=== PATIENT | female | born 1990 | race Caucasian/White ===

== ENCOUNTER 2023-02-19 13:44 | Emergency (ER) | payer BC, OTHER ==
--- OUTSIDE RECORDS SUMMARY | 2023-02-19 13:49 | XMS REPORT | Continuity of Care Document ---
:1990 Author Organization [facility] t Address [address] [place] [address] Care Team Providers Name Role Phone FENG OBONORUMA IMARIA Attending Clinician Unavailable Ralph Mendezonoruma Gregoriaariabe Attending Clinician Yossi Aguilar Attending Clinician EKHAESE OBONORUMA IMARIA Admitting Clinician Unavailable Ekhaese Obonoruma Imariabe Admitting Clinician Problems Condition Condition Condition Status Onset Resolution Last Treating Co mments Source Name Details Category Date Date Treatment Clinician Date E66.01 E66.01 Diagnosis Active 2021-102022-09-04 Me moria Active 0- 07:10:00 l 08/14/2022 00:00: Chava mendieta [address] MORBID MORBID Diagnosis Active 2021-102022-12-30 Me moria OBESITY, OBESITY, 0-20 09:59:00 l STATUS STATUS 00:00: Toney POST POST 00 GASTRIC GASTRIC BYPA BYPA Active 08/14/2022 [facility] UNK UNK Diagnosis Active 2022-06-10 Mem oria Active 05-09 17:21:00 l 05/09/2022 00:00: Chava Chandra 00 [place] EGD_ EGD_ Diagnosis Active 2022-06-11 Mem oria Active 05-09 06:30:00 l 05/09/2022 00:00: Chava Chandra 00 [place] DX E66.01 DX E66.01 Diagnosis Active 2022-05-16 Memoria MORBID MORBID 05-01 07:39:00 l (SEVERE) (SEVERE) 00:00: Chava mendieta OBESITY OBESITY 00 DUE TO DUE TO Active 05/01/2022 [facility] Gastroesop Gastroeso Problem Active 2022-11-28 Memoria hageal phageal 13:50:05 l reflux reflux [place] disease disease (disorder) (disorder) Active Problem 11/28/2022 [facility] Obesity Obesity Problem Active 2022-11-28 Me moria (disorder) (disorder) 13:50:05 l Active Toney Problem 11/28/2022 [facility] Pain in Pain in Problem Active 2022-11-28 Me moria upper limb upper limb 13:50:05 l (finding) (finding) Herm michele Active Problem 11/28/2022 [facility] Paresthesi Paresthes Problem Active 2022-11-28 Memoria a ia 13:50:05 l (finding) (finding) Herm michele Active Problem 11/28/2022 [facility] History of History Problem Active 2022-11-28 Memoria bariatric of 13:50:05 l surgical bariatric Lisseth nn procedure surgical (situation procedure ) (situation ) Active Problem 11/28/2022 [facility] MORBID MORBID Diagnosis Active 2022-12-30 Me moria (SEVERE) (SEVERE) 09:59:00 l OBESITY OBESITY Toney DUE TO DUE TO EXCESS CA EXCESS CA Active [facility] BARIATRIC Diagnosis Active 2022-12-30 Memoria SURGERY BARIATRIC 09:59:00 l STATUS SURGERY Toney STATUS Active [facility] Allergies, Adverse Reactions, Alerts Allergy Allergy Status Severity Reaction(s) Onset Inactive Treating Comm ents Source Name Type Date Date Clinician penicill penicill Active Sanjeev vo in in l [place] Social History Social Habit Start Date Stop Date Quantity Comments Source Social History 2022-06-04 2022-06-[address] [facility] danial 18:27:54 18:27:54 Smoking Status Start Date Stop Date Source Tobacco smoking status 2022-09-05 22:36:14 2022-09-05 22:36:14 [facility] Medications Ordered Filled Start Stop Current Ordering Indication Dosage Frequency Signature Comments Components Source Medication Medication Date Date Medication? Clinician (SIG) Name Name Sodium No 1,000 mL, Memori a Chloride 17 Rate: 75 l 0.9% IV 12:31: ml/hr, Toney 1,000 mL 00 Infuse over: 13.3 hr, Route: IV, Dosing Weight 142.227 kg, Total Volume: 1,000, Start date: 06/11/22 7:31:00 CDT, Duration: 30 day, Stop date: 07/11/22 7:30:00 CDT, BSA: 2.62 m2, 0 Home Yes collagen, Memoria Medication 8-10 Refill(s) l 18:23: 0 [place] 00 Vitamin D3 Yes 1,250 Memori a 50,000 intl 8-10 microgram l units oral 18:22: = 1 cap, Her yung capsule 00 PO, qWeek Vitamin B Yes PO, Daily Mem oria Complex 8-10 l oral tablet 18:17: Chava n 00 Vital Signs Vital Name Observation Time Observation Value Comments Source Heart Rate 2022-09-05 21:54:16 [facility] [place] Systolic (mm Hg) 2022-09-05 21:53:56 Delio rial [place]oney Diastolic (mm Hg) 2022-09-05 21:53:56 Mem orial [place] Temperature Oral (F) 2022-09-05 21:53:04 98.3 F [facility] [place] Weight 2022-09-04 12:35:00 [facility] [place] BMI Calculated 2022-09-04 12:35:00 Memori al [place] Height 2022-08-28 19:37:00 5 [ft_i] [facility] [place] Respitory Rate 2022-06-11 13:40:00 Memori al [place] Systolic (mm Hg) 2022-06-11 13:40:00 Delio rial [place] Diastolic (mm Hg) 2022-06-11 13:40:00 Mem orial [place] Respitory Rate 2022-06-11 13:25:00 Memori al [place] Systolic (mm Hg) 2022-06-11 13:25:00 Delio rial [place] Diastolic (mm Hg) 2022-06-11 13:25:00 Mem orial [place]oney Respitory Rate 2022-06-11 13:08:00 Memori al [place] Systolic (mm Hg) 2022-06-11 13:08:00 Delio rial [place] Diastolic (mm Hg) 2022-06-11 13:08:00 Mem orial [place] Height 2022-06-10 20:51:00 167.64 cm [facility] [place] Weight 2022-06-10 20:51:00 [facility] [place] BMI Calculated 2022-06-10 20:51:00 Memori al [place] Height 2022-06-04 18:24:00 167.64 cm [facility] [place] Weight 2022-06-04 18:24:00 [facility] [place] BMI Calculated 2022-06-04 18:24:00 Memori al [place] Procedures Procedure Date / Time Performing Source Performed Clinician Excision of ganglion [facility] noelle cyst<sup>1</sup> Cholecystectomy [facility] Toney Charnley operation on ankle Delio rial [place] EGD - [facility] Start End Encounter Admission Attending Care Care Encounter Source Date/Time Date/Time Type Type Clinicians Facility Department ID 2022-01-02 Outpatient [facility] [id number] Common 16:20:01 [facility] 2021-11-20 [facility] [id number] Common 14:34:51 [facility] 2022-11-24 2022-11-26 Outside MHIE MNA [id number] Memoria 14:28:56 05:59:59 Medical Neurology 00 l Gisell Ziegler 2022-11-24 2022-11-25 Outpatient MHMISCHER MHMISCHER [id number] 08:28:56 23:59:59 00 2022-09-04 2022-09-06 Inpatient [facility] [id number] Memoria 11:22:00 00:09:00 r Toney 02 l [facility] 2022-09-04 2022-09-05 Inpatient RENAN MENDEZ DARYL [id number] 05:22:00 18:09:00 [facility] 2022-09-05 Outpatient Ekhaese, MHSE MHSE [id number] 05:22:00 18:09:00 Obonoruma 02 Imariabe 2022-06-11 2022-06-11 Bedded nullFlavo [facility] [id number] Memoria 11:20:00 13:56:00 Outpatient r Toney [facility] 2022-06-11 2022-06-11 Outpatient EKHAESE, MHBL DARYL [id number] MHBL 06:20:00 08:56:00 OBONORUMA 2022-06-11 2022-06-11 Outpatient Ekhaese, MHPL MHPL [id number] 06:20:00 08:56:00 Obonoruma 01 aria 2022-06-11 2022-06-11 Outpatient Ekhaese, MHPL PL [id number] 06:20:00 08:56:00 Obonoruma 01 [facility] 2022-05-05 2022-06-04 Recurring nullFlavo [facility] [id number] Memoria 15:00:00 04:59:00 r Toney [facility] 2022-05-05 2022-06-03 Outpatient EKHAESE, MHSE DARYL [id number] MH 10:00:00 23:59:00 OBONORUMA [facility] 2022-05-05 2022-06-03 Outpatient Ekhaese, MHSE MHSE [id number] 10:00:00 23:59:00 Obonoruma 00 aria 2021-11-28 2021-11-29 Outpatient nullFlavo MNA [id number] Memoria 19:30:00 05:59:59 r Neurology 01 John Ramirezann 2021-11-28 2021-11-28 Outpatient LUI AguilarSCHER WILIANMISCHER [id number] 13:30:00 23:59:59 Yossi Mick Chase 2021-11-28 2021-11-28 Outpatient MHIE [place] [id number] Memoria 13:30:00 13:30:00 01 bam RamirezToney 2021-11-26 2021-11-26 Ambulatory nullFlavo MNA [id number] Memoria 22:15:00 22:15:00 [facility] 2021-11-26 Outpatient [facility] [id number] Memoria 16:15:00 16:15:00 00 l [place] 2021-11-26 2021-11-26 Outpatient ELIOT Aguilar [facility] [id number] 16:15:00 16:15:00 Yossi 00 Salvatore Results Test Description Test Time Test Comments Results Result Comments Source CHEMISTRY 2022-09-05 12:52:00 Test Item Value Reference Range Interpretation Comme nts Chloride Lvl (test code = Chloride Lvl) 108 95-109 [facility]SdwkptgFOTKXGETK3325-95-30 12:52:00 Test Item Value Reference Range Interpretation Comments CO2 (test code = CO2) 19 24-32 [facility] CenterQvqmjrxEPHMSYFWZ2371-94-88 12:52:00 Test Item Value Reference Range Interpretation Comments Calcium Lvl (test code = Calcium Lvl) 8.9 8.5-10.5 [facility] CenterIqjcdduLOPPCFLDR9075-89-15 12:52:00 Test Item Value Reference Range Interpretation Comments Total Protein (test code = Total 6.8 6.4-8.4 Protein) [facility] CenterQusarovVOXWLDTEI3574-66-39 12:52:00 Test Item Value Reference Range Interpretation Comments Albumin Lvl (test code = Albumin Lvl) 3.3 3.5-5.0 [facility] CenterRhkirzxHHSTZGRLS0572-99-68 12:52:00 Test Item Value Reference Range Interpretation Comments ALT (test code = ALT) 97 See_Comment [Auto mated message] The system which ge nerated this result transmit kylie reference range : <=65. The reference range was not used to interpr et this result as mahesh l/abnormal. [facility] CenterFydmvxzSVRECDVPA9445-96-18 12:52:00 Test Item Value Reference Range Interpretation Comments AST (test code = AST) 59 See_Comment [Auto mated message] The system which ge nerated this result transmit kylie reference range : <=37. The reference range was not used to interpr et this result as mahesh l/abnormal. [facility] CenterAlbenhmJPPGJEJYZ4467-28-80 12:52:00 Test Item Value Reference Range Interpretation Comments Alk Phos (test code = Alk Phos) 45 39-136 [facility] CenterUmavngyIQGNCSENP4593-43-99 12:52:00 Test Item Value Reference Range Interpretation Comments Bili Total (test code = Bili Total) 0.5 0.2-1.3 [facility] CenterGkvmtseJSVDGUEGY3332-40-47 12:52:00 Test Item Value Reference Range Interpretation Comments AGAP (test code = AGAP) 14.6 10.0-20.0 [facility] CenterDgmohkuVWGLAZJSI6369-74-99 12:52:00 Test Item Value Reference Range Interpretation Comments B/C Ratio (test code = B/C Ratio) 7 1 6-25 [facility] CenterZanyazpWLGCUNMJJ7887-96-64 12:52:00 Test Item Value Reference Range Interpretation Comments Globulin (test code = Globulin) 3.5 2.7-4.2 [facility] CenterLtxnlqcTPRKIBCXF5941-84-78 12:52:00 Test Item Value Reference Range Interpretation Comments A/G Ratio (test code = A/G Ratio) 0.9 1 0.7-1.6 [facility] CenterGfglwhxAPOTSFQCT6969-93-62 12:52:00 Test Item Value Reference Range Interpretation Comments eGFR (test code = eGFR) 84 [facility]DliljlkSTYLTXTDSZ9502-18-98 12:52:00 Test Item Value Reference Range Interpretation Comments WBC (test code = WBC) 13.6 3.7-10.4 [facility] HospitalOxkydbuIXQELXYLAK7492-20-19 12:52:00 Test Item Value Reference Range Interpretation Comments RBC (test code = RBC) 4.38 4.20-5.40 [facility] HospitalQjqzafdAIPAHYTOLB7559-11-11 12:52:00 Test Item Value Reference Range Interpretation Comments Hgb (test code = Hgb) 12.4 12.0-16.0 [facility] HospitalXqtnernZKQZSFXTST4475-46-01 12:52:00 Test Item Value Reference Range Interpretation Comments Hct (test code = Hct) 37.6 36.0-48.0 [facility] HospitalSursivuUAPPJHAABI1190-78-16 12:52:00 Test Item Value Reference Range Interpretation Comments MCV (test code = MCV) 86.0 80.0-98.0 [facility] HospitalXrbzthnVAAMOJPCIW3470-23-11 12:52:00 Test Item Value Reference Range Interpretation Comments MCH (test code = MCH) 28.4 pg 27.0-31.0 [facility] HospitalTurhdzpEQYVXSJXWS0808-20-87 12:52:00 Test Item Value Reference Range Interpretation Comments MCHC (test code = MCHC) 33.1 32.0-36.0 [facility] HospitalStulaftUUNXBFBVEU0430-26-31 12:52:00 Test Item Value Reference Range Interpretation Comments RDW (test code = RDW) 13.2 11.5-14.5 [facility] HospitalZwueewcXFNOKSWDVD9435-75-24 12:52:00 Test Item Value Reference Range Interpretation Comments Platelet (test code = Platelet) 250 133-450 [facility] HospitalSdxwvzgYEOTSOASSW3732-35-50 12:52:00 Test Item Value Reference Range Interpretation Comments MPV (test code = MPV) 8.0 7.4-10.4 [facility] HospitalUoxblpiKRHSCGKZHC1482-82-50 12:52:00 Test Item Value Reference Range Interpretation Comments Segs (test code = Segs) 83.7 45.0-75.0 [facility] HospitalXpeybpiQIBEOMTIFV6662-16-34 12:52:00 Test Item Value Reference Range Interpretation Comments Lymphocytes (test code = Lymphocytes) 9.2 20.0-40.0 [id number] 12:52:00 Test Item Value Reference Range Interpretation Comments Monocytes (test code = Monocytes) 6.9 2.0-12.0 [facility] HospitalCnsiwujPHJYZRLOHW3416-73-26 12:52:00 Test Item Value Reference Range Interpretation Comments Eosinophils (test code = 0.1 See_Comment [A utomated message] The Eosinophils) system which ge nerated this result tra nsmitted reference range : <=4.0. The reference r mega was not used to int erpret this result as normal/abnormal . [facility] HospitalXijzcxzQAVUWFBMTN9761-66-65 12:52:00 Test Item Value Reference Range Interpretation Comments Basophils (test code = 0.1 See_Comment [Aut omated message] The Basophils) system which ge nerated this result tra nsmitted reference range : <=1.0. The reference r mega was not used to int erpret this result as normal/abnormal . [place] [id number] 12:52:00 Test Item Value Reference Range Interpretation Comments Neutrophils # (test code = Neutrophils 11.4 1.5-8.1 #) [place] [id number] 12:52:00 Test Item Value Reference Range Interpretation Comments Lymphocytes # (test code = Lymphocytes 1.3 1.0-5.5 #) [facility] HospitalLmhrqwoXSNAYVBVRP0799-41-41 12:52:00 Test Item Value Reference Range Interpretation Comments Monocytes # (test code 0.9 See_Comment [Aut omated message] The = Monocytes #) system which generated this result tra nsmitted reference range : <=0.8. The reference r mega was not used to int erpret this result as normal/abnormal . [facility] CenterCdownzdYGEIRPLTL3218-51-05 12:52:00 Test Item Value Reference Range Interpretation Comments Glucose Lvl (test code = Glucose Lvl) 114 70-99 [facility] CenterZhkyibnVVBGNTJJY4867-05-65 12:52:00 Test Item Value Reference Range Interpretation Comments BUN (test code = BUN) 6 7-22 [facility] CenterUnhotiaLFITLJUGF2575-40-95 12:52:00 Test Item Value Reference Range Interpretation Comments Creatinine Lvl (test code = Creatinine 0.92 0.50-1.40 Lvl) [facility] CenterAnkobpbOUHIQXSMV7582-10-46 12:52:00 Test Item Value Reference Range Interpretation Comments Sodium Lvl (test code = Sodium Lvl) 137 135-145 [facility] CenterWoojuudYPYKLLYCW1549-87-87 12:52:00 Test Item Value Reference Range Interpretation Comments Potassium Lvl (test code = Potassium 4.6 3.5-5.1 Lvl) [facility]io[facility] HLGTUKS7809-90-32 12:45:00 Test Item Value Reference Range Interpretation Comments ABO/Rh (test code = ABO/Rh) [facility]G [facility] CEYUBQL0096-26-87 12:45:00 Test Item Value Reference Range Interpretation Comments Antibody Scrn (test Negative (09/04/22 code = Antibody Scrn) 6:45 AM) [facility] CenterGhcfokjMSTPTCOYE5255-00-07 11:55:00 Test Item Value Reference Range Interpretation Comments U Preg (test code = U Negative (09/04/22 5:55 Preg) AM) [facility] HospitalBxcugxcYKBHSIPFSH2319-36-59 20:19:00 Test Item Value Reference Range Interpretation Comments PT (test code = PT) 14.3 s 12.0-14.7 [facility] HospitalGgpzoxrGYINJCPBHO0645-17-66 20:19:00 Test Item Value Reference Range Interpretation Comments INR (test code = INR) 1.12 1 0.85-1.17 [facility] HospitalBbilixnAWXHMJJAIF4188-73-40 20:19:00 Test Item Value Reference Range Interpretation Comments PTT (test code = PTT) 32.4 s 22.9-35.8 [facility] HospitalFfruvxyYKFRFIJJRA1243-72-21 20:19:00 Test Item Value Reference Range Interpretation Comments Eosinophils # (test code 0.1 See_Comment [A utomated message] The = Eosinophils #) system whic h generated this result tra nsmitted reference range : <=0.5. The reference r mega was not used to int erpret this result as normal/abnormal . [facility] HospitalEvgsubtAHLKXNAPYW4160-79-08 20:19:00 Test Item Value Reference Range Interpretation Comments Basophils # (test code 0.1 See_Comment [Aut omated message] The = Basophils #) system which generated this result tra nsmitted reference range : <=0.2. The reference r mega was not used to int erpret this result as normal/abnormal . [facility] CampusKuexdxwKUNWTIQLPW7693-25-95 20:50:00 Test Item Value Reference Range Interpretation Comments Coronavirus (COVID-19) Not Detected (06/10/22 CAROLINE (test code = 3:50 PM) Coronavirus (COVID-19) CAROLINE) [facility] [id number] 20:50:00 Test Item Value Reference Range Interpretation Comments U Preg (test code = U Negative (06/10/22 3:50 Preg) PM) [facility]
[2023-02-19] MEDS ORDERED: Ringers Lactate 1,000 ML IV ONE (14:42)
[2023-02-19 14:43] LABS: Absolute Lymphocytes (CBC) 1.8 K/uL (0.7-4.9); Lymphocytes % 24.4 % (15.3-44.8); MPV 7.3 fL (7.6-11.3); RBC Red Blood Cell Count 4.77 M/uL (3.86-4.86)
--- NOTE | 2023-02-19 14:50 | RAD REPORT ---
EXAM DESCRIPTION: CT - Head Brain Wo Cont - 02/19/2023 2:21 pm CLINICAL HISTORY: near syncope, blurred vision COMPARISON: No comparisons TECHNIQUE: Noncontrast head CT images ad were obtained without IV contrast. Multiplanar reformats we re generated and reviewed. All CT scans are performed using dose optimization technique as appropriate and may include automated exposure control or mA/KV adjustment according to patient size. FINDINGS: No intracranial hemorrhage, mass, or edema. Midline structures are unremarkable. Normal ventricular caliber for age. Ware-white matter differentiation is preserved, without evidence of acute infarct. No abnormal extra- axial fluid collections. Mastoid air cells are well aerated. Moderate mucosal thickening of the left maxillary and ethmoidal a ir cells. No acute bony findings. IMPRESSION: No evidence of an acute intracranial process. Moderate mucosal thickening of the left maxillary and ethmoidal air cells.
[2023-02-19 15:04] LABS: Potassium 3.9 mEq/L (3.5-5.1); Troponin High Sensitivity 3.5 pg/mL (<58.9)
--- NOTE | 2023-02-19 15:59 | RAD REPORT ---
EXAM DESCRIPTION: MRI - Brain Wo Cont - 02/19/2023 2:59 pm CLINICAL HISTORY: headache, blurred vision, near syncope COMPARISON: Noncontrast head CT of the same day TECHNIQUE: Multiplanar multisequence MRI of the brain performed without IV contrast. FINDINGS: No evidence of acute infarct or other diffusion signal abnormality. No evidence of acute intracranial hemorrhage or abnormal extra-axial fluid collections. Ventricular caliber is within normal for age. Midline structures are unremarkable. No white matter signal abnormalities. No mass effect or midline shift. Major vascular flow voids are preserved. Mastoid air cells are clear. Left maxillary and sphenoidal sinus mucosal thickening. IMPRESSION: No acute intracranial process. No evidence of ventriculomegaly or mass effect.
[2023-02-19 16:35] LABS: Specific Gravity 1.018 (1.005-1.030)
[2023-02-19 16:42] LABS: Specific Gravity 1.018 (1.005-1.030); Urine Bacteria 20-50 /HPF (<20); Urine Bilirubin NEGATIVE (Negative); Urine Blood Negative (Negative); Urine Clarity Turbid (Clear); Urine Color Yellow (Yellow); Urine Glucose NEGATIVE (Negative); Urine Protein TRACE (Negative); Urine RBC <5 /HPF (None Seen); Urine Urobilinogen Normal (Normal); Urine pH 7.5 (5.0-7.0)
--- NOTE | 2023-02-19 17:20 | EDPHYS ---
Physician Documentation [facility] Name: Nayana Lundy Age: 32 yrs Sex: Female : 1990 Arrival Date: 02/19/2023 Time: 13:44 Bed 12 Private MD: ED Physician Bernardo Farley HPI: 02/19 14:06 This 32 yrs old Female presents to ER via Ambulatory with complaints of Blurred Vision, [facility] Nausea/Vomiting, Headache. 14:06 Is a 32-year-old female with no known chronic medical conditions that presents emerged [facility] part with complaints of multiple near syncopal episodes over the past 5 to 6 months. Patient states that she will develop tunnel vision during the episode. States that her blood pressure has been low throughout this period as well. Denies any known triggers. Patient is currently being evaluated by her PCP and is scheduled to see a neurologist in 2 months. Patient had a similar episode today. Patient also complains of headache similar to previous episodes.. 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 - Social history:: Smoking status: Patient denies any tobacco usage or history of. ROS: 14:06 Constitutional: Negative for fever, chills, and weight loss, Cardiovascular: Negative [facility] for chest pain, palpitations, and edema. 14:06 Respiratory: Negative for shortness of breath, cough, wheezing, and pleuritic chest pain. 14:06 Respiratory: Positive for 14:06 Neuro: Positive for headache, visual changes. 14:06 All other systems are negative. Exam: 14:06 Radiologist reports: Negative [facility] 14:06 Constitutional: This is a well developed, well nourished patient who is awake, alert, and in no acute distress. Head/Face: atraumatic. Eyes: EOMI, no conjunctival erythema appreciated ENT: Moist Mucus Membranes Neck: Trachea midline, Supple Chest/axilla: Normal chest wall appearance and motion. Cardiovascular: Regular rate and rhythm. No edema appreciated Respiratory: Normal respirations, no respiratory distress appreciated Abdomen/GI: Non distended Back: Normal ROM Skin: General appearance color normal MS/ Extremity: Moves all extremities, no obvious deformities appreciated, no edema noted to the lower extremities Neuro: Awake and alert Psych: Behavior is normal, Mood is normal, Patient is cooperative and pleasant Vital Signs: 14:00 BP 141 / 72; Pulse 85; Resp 17; Temp 98.2; Pulse Ox 99% on R/A; Weight 112.94 kg; ll1 Height 5 ft. 6 in. ; Pain 1/10; 16:32 BP 109 / 73; Pulse 86; Resp 20; Pulse Ox 99% on R/A; db 17:17 BP 117 / 64; Pulse 72; Resp 16; Pulse Ox 100% ; db 14:00 Body Mass Index 40.19 (112.94 kg, 167.64 cm) ll1 14:00 Pain Scale: Adult ll1 MDM: 14:06 Patient medically screened. [facility] 17:17 Differential diagnosis: CVA, TIA, Syncopal episode, vasovagal episode, migraine, [facility] intracranial bleed, CVA. Data reviewed: vital signs, nurses notes, lab test result(s), radiologic studies, CT scan, MRI. I considered the following discharge prescriptions or medication management in the emergency department Medications were administered in the Emergency Department. See MAR. Counseling: I had a detailed discussion with the patient and/or guardian regarding: the historical points, exam findings, and any diagnostic results supporting the discharge/admit diagnosis, lab results, radiology results, the need for outpatient follow up, to return to the emergency department if symptoms worsen or persist or if there are any questions or concerns that arise at home. Response to treatment: the patient's symptoms have markedly improved after treatment. ED course: PERC score negative. 02/19 14:07 Order name: Basic Metabolic Panel; Complete Time: 15:27 [facility] 02/19 14:07 Order name: CBC with Diff; Complete Time: 14:48 [facility] 02/19 14:07 Order name: Troponin HS; Complete Time: 15:27 [facility] 02/19 14:07 Order name: PREGU; Complete Time: 16:43 [facility] 02/19 14:07 Order name: Urinalysis w/ reflexes; Complete Time: 16:43 [facility] 02/19 14:07 Order name: CT Head Brain wo Cont; Complete Time: 14:53 [facility] 02/19 14:07 Order name: MRI - Brain Wo Cont; Complete Time: 16:02 [facility] 02/19 14:07 Order name: EKG; Complete Time: 14:08 [facility] 02/19 14:07 Order name: Cardiac monitoring; Complete Time: 15:21 [facility] 02/19 14:07 Order name: EKG - Nurse/Tech; Complete Time: 15:21 [facility] 02/19 14:07 Order name: IV Saline Lock; Complete Time: 15:21 [facility] 02/19 14:07 Order name: Labs collected and sent; Complete Time: 15:21 [facility] 02/19 14:07 Order name: O2 Per Protocol; Complete Time: 15: [facility] 02/19 14:07 Order name: O2 Sat Monitoring; Complete Time: 15:21 [facility] Administered Medications: 15:06 Drug: Lactated Ringers Solution IV 1000 ml Route: IV; Rate: 1000 bolus; Site: right db antecubital; 15:39 Follow up: Response: No adverse reaction; IV Status: Completed infusion; IV Intake: db 1000ml 17:26 Follow up: Response: No adverse reaction; IV Status: Completed infusion; IV Intake: db 1000ml Disposition: 19:06 Co-signature as Attending Physician, Bernardo Farley DO I was immediately available on-site ms3 in the Emergency Department for consultation in the care of the patient. Disposition Summary: 02/19/23 17:19 Discharge Ordered Location: Home [facility] Condition: Stable [facility] Diagnosis - Syncope Near jmm - Headache jmm - UTI/ Urinary tract infection, site not specified [facility] Followup: [facility] - With: Andrew Felix MD - When: 2 - 3 days - Reason: Recheck today's complaints, Continuance of care, Re-evaluation by your physician Discharge Instructions: - Discharge Summary Sheet jm - General Headache Without Cause jmm - Near-Syncope jmm - Urinary Tract Infection, Adult [facility] Forms: - Medication Reconciliation Form [facility] - Thank You Letter [facility] - Antibiotic Education [facility] - Prescription Opioid Use [facility] Prescriptions: - Macrobid 100 mg Oral Capsule - take 1 capsule by ORAL route every 12 hours for 7 days; 14 capsule; Refills: 0, jmm Product Selection Permitted Signatures: Dispatcher [employer] EDRaul Good PA PA jmm Lewis, Lynsay, RN RN ll1 Bernardo Farley, DO ms3 Marlene Koch, RN RN db
--- NOTE | 2023-02-19 17:20 | ER ---
Nurse's Notes [facility] Name: Nayana Lundy Age: 32 yrs Sex: Female : 1990 Arrival Date: 02/19/2023 Time: 13:44 Bed 12 Private MD: Diagnosis: Syncope Near;Headache;UTI/ Urinary tract infection, site not specified Presentation: 02/19 14:00 Coronavirus screen: Client denies travel out of the [place] in the last 14 days. At this ll1 time, the client does not indicate any symptoms associated with coronavirus-19. Ebola Screen: Patient denies travel to an Ebola-affected area in the 21 days before illness onset. Initial Sepsis Screen: Does the patient meet any 2 criteria? No. Patient's initial sepsis screen is negative. Does the patient have a suspected source of infection?. Risk Assessment: Do you want to hurt yourself or someone else? Patient reports no desire to harm self or others. 14:00 Method Of Arrival: Ambulatory ll1 14:00 Acuity: THANG 3 ll1 14:02 Chief complaint: Patient states: 4-5 months spells of blurred vision, nausea, hot ll1 sweats, CEDEÑO. 14:03 Onset of symptoms was October 26, 2022. 1 Triage Assessment: 14:04 General: Appears uncomfortable, Behavior is calm, cooperative, appropriate for age. ll1 Pain: Complains of pain in head Pain currently is 1 out of 10 on a pain scale. Quality of pain is described as aching. Neuro: Reports blurred vision dizziness, headache weakness. Cardiovascular: No deficits noted. GI: Reports nausea. 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 - Social history:: Smoking status: Patient denies any tobacco usage or history of. Screenin:22 [facility] ED Fall Risk Assessment (Adult) History of falling in the last 3 months, db including since admission No falls in past 3 months (0 pts) Confusion or Disorientation No (0 pts) Intoxicated or Sedated No (0 pts) Impaired Gait No (0 pts) Mobility Assist Device Used No (0 pt) Altered Elimination No (0 pt) Score/Fall Risk Level 0 - 2 = Low Risk Oriented to surroundings, Maintained a safe environment. Abuse screen: Denies threats or abuse. Denies injuries from another. Nutritional screening: No deficits noted. Tuberculosis screening: No symptoms or risk factors identified. Assessment: 14:32 Reassessment: Patient appears in no apparent distress at this time. patient to ct. db 15:21 Reassessment: Patient appears in no apparent distress at this time. Patient and/or db family updated on plan of care and expected duration. Pain level reassessed. Patient is alert, oriented x 3, equal unlabored respirations, skin warm/dry/pink. GI: Abdomen is flat, non-distended. 15:42 Reassessment: patient ambulatory to restroom. db 17:17 Reassessment: Patient appears in no apparent distress at this time. Patient and/or db family updated on plan of care and expected duration. Pain level reassessed. Patient is alert, oriented x 3, equal unlabored respirations, skin warm/dry/pink. Reassessment:. General: Appears in no apparent distress. comfortable, Behavior is calm, cooperative. Neuro: No deficits noted. Level of Consciousness is awake, alert, obeys commands, Oriented to person, place, time, situation. 17:27 Reassessment: Patient appears in no apparent distress at this time. Patient and/or db family updated on plan of care and expected duration. Pain level reassessed. Patient is alert, oriented x 3, equal unlabored respirations, skin warm/dry/pink. Patient states feeling better. Patient states symptoms have improved. Vital Signs: 14:00 BP 141 / 72; Pulse 85; Resp 17; Temp 98.2; Pulse Ox 99% on R/A; Weight 112.94 kg; ll1 Height 5 ft. 6 in. ; Pain 1/10; 16:32 BP 109 / 73; Pulse 86; Resp 20; Pulse Ox 99% on R/A; db 17:17 BP 117 / 64; Pulse 72; Resp 16; Pulse Ox 100% ; db 14:00 Body Mass Index 40.19 (112.94 kg, 167.64 cm) ll1 14:00 Pain Scale: Adult ll1 ED Course: 13:50 Patient arrived in ED. ts1 13:51 Raul Mei PA is PHCP. [facility] 13:51 Bernardo Farley DO is Attending Physician. [facility] 14:01 Triage completed. ll1 14:01 Arm band placed on. ll1 14:23 CT Head Brain wo Cont In Process Unspecified. EDMS 14:26 Marlene Koch, RN is Primary Nurse. db 14:30 Patient has correct armband on for positive identification. Bed in low position. Call db light in reach. Side rails up X 1. 14:30 Client placed on continuous cardiac and pulse oximetry monitoring. NIBP monitoring db applied. 14:30 Inserted saline lock: 20 gauge in right antecubital area, using aseptic technique. db Blood collected. 14:53 MRI - Brain Wo Cont In Process Unspecified. EDMS 17:18 Andrew Felix MD is Referral Physician. [facility] 17:27 No provider procedures requiring assistance completed. IV discontinued, intact, db bleeding controlled, No redness/swelling at site. Administered Medications: 15:06 Drug: Lactated Ringers Solution IV 1000 ml Route: IV; Rate: 1000 bolus; Site: right db antecubital; 15:39 Follow up: Response: No adverse reaction; IV Status: Completed infusion; IV Intake: db 1000ml 17:26 Follow up: Response: No adverse reaction; IV Status: Completed infusion; IV Intake: db 1000ml Medication: 17:27 VIS not applicable for this client. db Intake: 15:39 IV: 1000ml; Total: 1000ml. db 17:26 IV: 1000ml; Total: 2000ml. db Outcome: 17:19 Discharge ordered by . [facility] 17:27 Discharged to home ambulatory, with family. db 17:27 Condition: stable 17:27 Discharge instructions given to patient, Instructed on discharge instructions, follow up and referral plans. Prescriptions given X 1. 17:29 Patient left the ED. db Signatures: Dispatcher [employer] EDLA Raul Mei PA PA jmm Lewis, Lynsay, RN RN ll1 Marlene Koch, RN RN Larisa Mckeon PAS PAS ts1
[2023-02-19 17:45] VITALS: TEMP 98.2
[2023-02-19 17:49] VITALS: BP 117/64; O2SAT 100
--- NOTE | 2023-02-20 07:01 | EKG ---
Test Date: 2023-02-19 Test Time: 15:14:17 Gun Examiner: [place] MEASUREMENT RESULTS: Intervals: Rate: 75 ND: 126 QRSD: 100 QT: 404 QTc: 451 [place]: P: 53 ND: 126 QRS: 32 T: 28 INTERPRETIVE STATEMENTS: Normal sinus rhythm with sinus arrhythmia Normal ECG No previous ECG available for comparison Electronically Signed On 02-20-23 06:59:48 CDT by Hipolito Arauz
== END 2023-02-19 17:29 | disposition home or self-care (01) ==
LOC: ER 13:44
DX: N39.0 Urinary tract infection, site not specified (principal); R55 Syncope and collapse; Z88.0 Allergy status to penicillin
CPT/HCPCS: 93005; 85025; 81001; 80048; 36415; 81025; 84484; 70450; 70551; J7120